=== PATIENT | female | born 1990 | race Caucasian/White ===

== ENCOUNTER 2018-07-14 16:58 | Emergency (ER) | payer OTHER ==
[~2018-07-14] VITALS: Ht 160 cm; Wt 56.0 kg
[2018-07-14] MEDS ORDERED: AMOX500C2 PO (20:05)
--- NOTE | 2018-07-14 20:46 | NUR ---
PATIENT IS FROM [place] AND I EXPLAINED HER DISCHARGE MEDICATIONS: PRESCRIPTION AMOXICILLIN AND OTC IBUPROFEN AND TYLENOL : IS EXPLICIT DETAIL. I EXPLAINED THE OTC FORMULATION IS THE [place] AND HOW DR CORBETT SUGGESTED THAT SHE TAKE THE IBUPROFEN AND TYLENOL: AMOUNT, FREQUENCY, ROUTE.
[2018-07-14 20:52] VITALS: BP 125/71
== END 2018-07-14 20:56 | disposition home or self-care (01) ==
LOC: ER 16:59
DX: K08.89 Other specified disorders of teeth and supporting structures (principal); R51 Headache
CPT/HCPCS: 99283